=== PATIENT | female | born 1990 | race African-American/Black ===

== ENCOUNTER 2018-07-25 18:58 | Emergency (ER) | payer MEDICAID, OTHER ==
[~2018-07-25] VITALS: Ht 180.3 cm; Wt 96.0 kg
[2018-07-25] MEDS ORDERED: ONDANSETRON HCL 4MG/2ML INJ IV STA (21:08)
[2018-07-25] MEDS ORDERED: KETOROLAC 30MG/ML VIAL IV STA (21:08)
[2018-07-25] MEDS ORDERED: SODIUM CHLORIDE 0.9% 1000ML BAG (SEPSIS BOLUS) IV ONE (21:15)
[2018-07-25 21:39] LABS: CLARITY URINE CLEAR (CLEAR); COLOR URINE YELLOW (YELLOW); KETONES URINE NEGATIVE (NEGATIVE); LEUKOCYTE ESTERASE URINE TRACE (NEGATIVE); NITRITE URINE NEGATIVE (NEGATIVE); OCCULT BLOOD URINE NEGATIVE (NEGATIVE); PROTEIN URINE NEGATIVE (NEGATIVE)
[2018-07-25 21:44] LABS: CHLORIDE 105 mEq/L (98-107)
[2018-07-25] MEDS ORDERED: ONDANSETRON 4MG ODT PO ONE (21:45)
[2018-07-25 21:50] LABS: ETHANOL BLOOD < 10 mg/dL
[2018-07-25 21:54] LABS: CREATINE KINASE 94 IU/L (26-192); CREATINE KINASE MB FRACTION < 1.0 ng/mL (0.5-3.6)
[2018-07-25 21:54] LABS: *AMPHETAMINES SCREEN URINE NEGATIVE (NEGATIVE); *BARBITURATES SCREEN URINE NEGATIVE (NEGATIVE); *BENZODIAZEPINES SCREEN URINE NEGATIVE (NEGATIVE); *COCAINE SCREEN URINE NEGATIVE (NEGATIVE); METHADONE URINE SCREEN NEGATIVE (NEGATIVE); OPIATES URINE SCREEN NEGATIVE (NEGATIVE); PHENCYCLIDINE URINE SCREEN NEGATIVE (NEGATIVE)
[2018-07-25 21:58] LABS: CANNABINOID URINE SCREEN PRESUMTIVE POSITIVE (NEGATIVE)
[2018-07-25 22:50] LABS: BASOPHILS % 0.5 % (0.0-2.0); EOSINOPHILS % 0.6 % (0.0-5.0); HEMATOCRIT. 39.8 % (36.0-48.0); HEMOGLOBIN. 13.5 g/dL (12.0-16.0); LYMPHOCYTES % 24.3 % (20.0-50.0); MEAN CORPUSCULAR HEMOGLOBIN 29.3 pg (28.0-32.0); MEAN CORPUSCULAR VOLUME 86.6 fL (81.0-99.0); MONOCYTES % 7.7 % (2.0-8.0); NEUTROPHILS % 66.9 % (40.0-76.0); PLATELET 321 x1000/uL (130-400); RED BLOOD CELL COUNT 4.59 mill/uL (4.2-5.4); RED CELL DISTRIBUTION WIDTH 13.8 % (11.6-14.6)
[2018-07-25 22:54] LABS: INR 1.1; PROTHROMBIN TIME 10.9 sec (9.6-11.0)
[2018-07-25 22:55] LABS: HCG SCREEN NEGATIVE
[2018-07-26 00:30] VITALS: BP 111/72
== END 2018-07-26 01:05 | disposition home or self-care (01) ==
LOC: ER 18:58
DX: K52.9 Noninfective gastroenteritis and colitis, unspecified (principal); R11.2 Nausea with vomiting, unspecified; N39.0 Urinary tract infection, site not specified; Z98.890 Other specified postprocedural states
CPT/HCPCS: 36415; 80053; 80305; 80320; 81003; 82550; 82553; 83605; 83690; 83880; 84145; 84484; 84703; 85025; 85610; 87015; 87040; 87045; 87086; 87427; 87449; 87493; 99283; J7030; Q0162; Z7610; G0480

== ENCOUNTER 2019-04-23 07:54 | Emergency (ER) | payer OTHER ==
[~2019-04-23] VITALS: Ht 177.8 cm; Wt 91.0 kg
[2019-04-23 08:30] VITALS: BP 123/77
[2019-04-23] MEDS ORDERED: KETOROLAC 30MG/ML VIAL IM ONE (09:00)
== END 2019-04-23 10:23 | disposition home or self-care (01) ==
LOC: ER 08:03
DX: R51 Headache (principal); Z98.890 Other specified postprocedural states
CPT/HCPCS: 81025; 96372; 99283; J1885

== ENCOUNTER 2019-09-25 07:55 | Emergency (ER) | payer OTHER ==
[~2019-09-25] VITALS: Ht 175.3 cm; Wt 86.0 kg
[2019-09-25 08:03] VITALS: BP 117/70
[2019-09-25 09:01] LABS: CLARITY URINE TURBID (CLEAR); COLOR URINE DARK YELLOW (YELLOW); KETONES URINE TRACE (NEGATIVE); LEUKOCYTE ESTERASE URINE 2+ (NEGATIVE); NITRITE URINE NEGATIVE (NEGATIVE); OCCULT BLOOD URINE NEGATIVE (NEGATIVE); PROTEIN URINE TRACE (NEGATIVE); SPECIFIC GRAVITY URINE 1.029 (1.005-1.030)
[2019-09-25] MEDS ORDERED: NITROFURANTOIN 100MG M/M CAPSULE PO ONE (09:30)
[2019-09-25 10:15] LABS: CHLORIDE 107 mEq/L (98-107)
[2019-09-25 10:17] LABS: EOSINOPHILS % 1.8 % (0.0-5.0); HEMATOCRIT. 40.1 % (36.0-48.0); HEMOGLOBIN. 13.4 g/dL (12.0-16.0); LYMPHOCYTES % 30.5 % (20.0-50.0); MEAN CORPUSCULAR HEMOGLOBIN 29.7 pg (28.0-32.0); MEAN CORPUSCULAR VOLUME 88.7 fL (81.0-99.0); MEAN PLATELET VOLUME 7.3 fl (7.4-10.4); NEUTROPHILS % 58.7 % (40.0-76.0); PLATELET 312 x1000/uL (130-400); RED BLOOD CELL COUNT 4.52 mill/uL (4.2-5.4); RED CELL DISTRIBUTION WIDTH 13.4 % (11.6-14.6)
[2019-09-25 10:29] LABS: B-HCG QUANTITATIVE 108 mIU/mL (<3)
[2019-09-27 04:07] LABS: NEISSERIA GONORRHOEAE NAA Negative (Negative)
== END 2019-09-25 10:40 | disposition home or self-care (01) ==
LOC: ER 08:28
DX: O23.41 Unspecified infection of urinary tract in pregnancy, first trimester (principal); Z3A.01 Less than 8 weeks gestation of pregnancy; Z98.890 Other specified postprocedural states
CPT/HCPCS: 36415; 76801; 80053; 81003; 81025; 84702; 85025; 87491; 87591; 99284

== ENCOUNTER 2019-09-28 06:50 | Emergency (ER) | payer OTHER ==
[~2019-09-28] VITALS: Ht 177.8 cm; Wt 86.0 kg
[2019-09-28 06:54] VITALS: BP 115/69
[2019-09-28 07:35] LABS: CHLORIDE 107 mEq/L (98-107)
[2019-09-28 07:38] LABS: CLARITY URINE CLEAR (CLEAR); COLOR URINE YELLOW (YELLOW); KETONES URINE NEGATIVE (NEGATIVE); LEUKOCYTE ESTERASE URINE 1+ (NEGATIVE); NITRITE URINE NEGATIVE (NEGATIVE); OCCULT BLOOD URINE NEGATIVE (NEGATIVE); PH URINE 5.5 (4.5-8.0); PROTEIN URINE NEGATIVE (NEGATIVE); SPECIFIC GRAVITY URINE 1.024 (1.005-1.030)
[2019-09-28 07:46] LABS: B-HCG QUANTITATIVE 118 mIU/mL (<3)
== END 2019-09-28 09:34 | disposition home or self-care (01) ==
LOC: ER 06:52
DX: O20.0 Threatened abortion (principal); Z3A.00 Weeks of gestation of pregnancy not specified
CPT/HCPCS: 36415; 76801; 80053; 81003; 81025; 84702; 99284

== ENCOUNTER 2019-10-01 13:13 | Emergency (ER) | payer OTHER ==
[~2019-10-01] VITALS: Ht 177.8 cm; Wt 85.0 kg
[2019-10-01 15:19] LABS: CLARITY URINE CLOUDY (CLEAR); COLOR URINE YELLOW (YELLOW); KETONES URINE NEGATIVE (NEGATIVE); LEUKOCYTE ESTERASE URINE 1+ (NEGATIVE); NITRITE URINE NEGATIVE (NEGATIVE); OCCULT BLOOD URINE NEGATIVE (NEGATIVE); PH URINE 6.5 (4.5-8.0); PROTEIN URINE NEGATIVE (NEGATIVE)
[2019-10-01 16:43] LABS: BASOPHILS % 0.8 % (0.0-2.0); EOSINOPHILS % 0.9 % (0.0-5.0); HEMOGLOBIN. 12.7 g/dL (12.0-16.0); LYMPHOCYTES % 38.1 % (20.0-50.0); MEAN CORPUSCULAR HEMOGLOBIN 29.2 pg (28.0-32.0); MEAN CORPUSCULAR VOLUME 87.6 fL (81.0-99.0); MEAN PLATELET VOLUME 7.3 fl (7.4-10.4); MONOCYTES % 9.4 % (2.0-8.0); NEUTROPHILS % 50.8 % (40.0-76.0); PLATELET 335 x1000/uL (130-400); RED BLOOD CELL COUNT 4.33 mill/uL (4.2-5.4)
[2019-10-01 16:45] LABS: CHLORIDE 107 mEq/L (98-107)
[2019-10-01 16:56] LABS: B-HCG QUANTITATIVE 14 mIU/mL (<3)
[2019-10-01 17:46] VITALS: BP 120/70
== END 2019-10-01 17:47 | disposition home or self-care (01) ==
LOC: ER 13:13
DX: R10.32 Left lower quadrant pain (principal); G43.909 Migraine, unspecified, not intractable, without status migrainosus; Z98.890 Other specified postprocedural states
CPT/HCPCS: 36415; 76801; 80053; 81003; 81025; 84702; 85025; 86850; 86900; 99284

== ENCOUNTER 2019-12-16 18:34 | Emergency (ER) | payer OTHER ==
[~2019-12-16] VITALS: Ht 177.8 cm; Wt 95.0 kg
[2019-12-16 19:00] VITALS: BP 111/72
[2019-12-16] MEDS ORDERED: ACETAMINOPHEN 325MG TABLET PO ONE (19:00)
== END 2019-12-16 19:19 | disposition home or self-care (01) ==
LOC: ER 18:34
DX: L03.115 Cellulitis of right lower limb (principal)
CPT/HCPCS: 99283

== ENCOUNTER 2020-04-14 21:43 | Emergency (ER) | payer OTHER ==
[~2020-04-14] VITALS: Ht 175.3 cm; Wt 91.0 kg
[2020-04-14 21:52] VITALS: BP 124/92
[2020-04-14] MEDS ORDERED: KETOROLAC 30MG/ML VIAL IV STA (23:03)
[2020-04-14] MEDS ORDERED: SODIUM CHLORIDE 0.9% 1,000 ML IV ONE (23:15)
[2020-04-14 23:31] LABS: EOSINOPHILS % 1.9 % (0.0-5.0); HEMATOCRIT. 37.2 % (36.0-48.0); HEMOGLOBIN. 12.7 g/dL (12.0-16.0); LYMPHOCYTES % 41.3 % (20.0-50.0); MEAN CORPUSCULAR HEMOGLOBIN 29.9 pg (28.0-32.0); MEAN CORPUSCULAR VOLUME 87.3 fL (81.0-99.0); MEAN PLATELET VOLUME 7.2 fl (7.4-10.4); MONOCYTES % 7.9 % (2.0-8.0); NEUTROPHILS % 47.9 % (40.0-76.0); PLATELET 319 x1000/uL (130-400); RED BLOOD CELL COUNT 4.26 mill/uL (4.2-5.4); RED CELL DISTRIBUTION WIDTH 13.4 % (11.6-14.6)
[2020-04-14 23:36] LABS: CLARITY URINE CLOUDY (CLEAR); COLOR URINE YELLOW (YELLOW); KETONES URINE TRACE (NEGATIVE); LEUKOCYTE ESTERASE URINE 1+ (NEGATIVE); NITRITE URINE NEGATIVE (NEGATIVE); OCCULT BLOOD URINE NEGATIVE (NEGATIVE); PROTEIN URINE NEGATIVE (NEGATIVE); SPECIFIC GRAVITY URINE 1.027 (1.005-1.030)
[2020-04-14 23:43] LABS: CHLORIDE 107 mEq/L (98-107)
== END 2020-04-15 02:16 | disposition left against medical advice (07) ==
LOC: ER 21:43
DX: R10.30 Lower abdominal pain, unspecified (principal); Z98.890 Other specified postprocedural states
CPT/HCPCS: 36415; 76830; 76856; 80053; 81003; 81025; 85025; 93005; 96374; 99285; J1885; J7030

== ENCOUNTER 2022-05-13 22:41 | Emergency (ER) | payer MEDICAID, OTHER ==
[~2022-05-13] VITALS: Ht 177.8 cm; Wt 98.0 kg
[2022-05-14 00:13] LABS: CHLORIDE 106 mEq/L (98-107)
[2022-05-14 00:19] LABS: BASOPHILS % 0.8 % (0.0-2.0); EOSINOPHILS % 2.9 % (0.0-5.0); HEMATOCRIT. 42.6 % (36.0-48.0); HEMOGLOBIN. 14.3 g/dL (12.0-16.0); LYMPHOCYTES % 42.8 % (20.0-50.0); MEAN CORPUSCULAR HEMOGLOBIN 29.4 pg (28.0-32.0); MEAN CORPUSCULAR VOLUME 87.8 fL (81.0-99.0); MEAN PLATELET VOLUME 7.2 fl (7.4-10.4); MONOCYTES % 9.2 % (2.0-8.0); NEUTROPHILS % 44.3 % (40.0-76.0); PLATELET 363 x1000/uL (130-400); RED BLOOD CELL COUNT 4.85 mill/uL (4.2-5.4); RED CELL DISTRIBUTION WIDTH 14.1 % (11.6-14.6)
[2022-05-14 02:15] LABS: CLARITY URINE CLEAR (CLEAR); COLOR URINE YELLOW (YELLOW); KETONES URINE TRACE (NEGATIVE); LEUKOCYTE ESTERASE URINE NEGATIVE (NEGATIVE); NITRITE URINE NEGATIVE (NEGATIVE); OCCULT BLOOD URINE NEGATIVE (NEGATIVE); PROTEIN URINE NEGATIVE (NEGATIVE); SPECIFIC GRAVITY URINE 1.023 (1.005-1.030); UROBILINOGEN URINE 0.2 E.U./dL (0.2-1.0)
[2022-05-14 02:21] LABS: UCG SCREEN NEGATIVE
[2022-05-14 03:15] VITALS: BP 128/82
[2022-05-14] MEDS ORDERED: IBUPROFEN 400MG TABLET PO ONE (03:15)
== END 2022-05-14 04:44 | disposition home or self-care (01) ==
LOC: ER 22:49
DX: R10.9 Unspecified abdominal pain (principal)
CPT/HCPCS: 36415; 76830; 76856; 80053; 81003; 81025; 84702; 85025; 99284

== ENCOUNTER 2022-05-16 18:22 | Emergency (ER) | payer OTHER ==
[~2022-05-16] VITALS: Ht 180.3 cm; Wt 98.0 kg
[2022-05-16 19:07] VITALS: BP 117/78
[2022-05-16 23:10] LABS: HEMATOCRIT 41.5 % (36.0-48.0); HEMOGLOBIN 13.9 g/dL (12.0-16.0); MEAN CORPUSCULAR HEMOGLOBIN 29.1 pg (28.0-32.0); MEAN CORPUSCULAR VOLUME 86.9 fL (81.0-99.0); PLATELET 327 x1000/uL (130-400); RED BLOOD CELL COUNT 4.77 mill/uL (4.2-5.4)
[2022-05-16 23:17] LABS: CHLORIDE 108 mEq/L (98-107)
[2022-05-16 23:46] LABS: CLARITY URINE CLEAR (CLEAR); COLOR URINE YELLOW (YELLOW); KETONES URINE NEGATIVE (NEGATIVE); LEUKOCYTE ESTERASE URINE 1+ (NEGATIVE); NITRITE URINE NEGATIVE (NEGATIVE); OCCULT BLOOD URINE NEGATIVE (NEGATIVE); PROTEIN URINE NEGATIVE (NEGATIVE); SPECIFIC GRAVITY URINE 1.021 (1.005-1.030); UROBILINOGEN URINE 0.2 E.U./dL (0.2-1.0)
== END 2022-05-17 03:48 | disposition home or self-care (01) ==
LOC: ER 18:22
DX: R10.9 Unspecified abdominal pain (principal); Z98.890 Other specified postprocedural states
CPT/HCPCS: 36415; 76830; 76856; 80053; 81003; 81025; 84702; 85027; 99284

== ENCOUNTER 2022-07-14 19:04 | Emergency (ER) | payer OTHER ==
[~2022-07-14] VITALS: Ht 177.8 cm; Wt 98.9 kg
[2022-07-14 19:23] VITALS: BP 120/73
== END 2022-07-14 22:24 | disposition left against medical advice (07) ==
LOC: ER 19:04
DX: Z53.21 Procedure and treatment not carried out due to patient leaving prior to being seen by health care provider (principal)
CPT/HCPCS: 99281

== ENCOUNTER 2023-08-01 15:49 | Emergency (ER) | payer MEDICAID, OTHER ==
[~2023-08-01] VITALS: Ht 177.8 cm; Wt 105.0 kg
[2023-08-01 16:25] VITALS: BP 116/87; TEMP 98.5; O2SAT 100
[2023-08-01 16:41] LABS: CLARITY URINE CLEAR (CLEAR); COLOR URINE YELLOW (YELLOW); GLUCOSE URINE NEGATIVE (NEGATIVE); KETONES URINE NEGATIVE (NEGATIVE); LEUKOCYTE ESTERASE URINE 1+ (NEGATIVE); NITRITE URINE NEGATIVE (NEGATIVE); OCCULT BLOOD URINE NEGATIVE (NEGATIVE); PROTEIN URINE NEGATIVE (NEGATIVE); SPECIFIC GRAVITY URINE 1.031 (1.005-1.030)
[2023-08-01 16:54] LABS: BACTERIA URINE 1+; SQUAMOUS EPITHELIAL CELL URINE 3+ /lpf (RARE/1+); YEAST URINE NONE SEEN
[2023-08-01] MEDS: ACETAMINOPHEN 325MG TABLET PO STA (16:54)
[2023-08-01 17:16] LABS: EOSINOPHILS % 1.4 % (0.0-5.0); HEMATOCRIT. 41.9 % (36.0-48.0); HEMOGLOBIN. 13.7 g/dL (12.0-16.0); LYMPHOCYTES % 40.1 % (20.0-50.0); MEAN CORPUSCULAR HEMOGLOBIN 28.9 pg (28.0-32.0); MEAN CORPUSCULAR HGB CONC 32.8 g/dL (31.0-37.0); MEAN CORPUSCULAR VOLUME 88.2 fL (81.0-99.0); MEAN PLATELET VOLUME 7.5 fl (7.4-10.4); MONOCYTES % 7.1 % (2.0-8.0); NEUTROPHILS % 50.4 % (40.0-76.0); PLATELET 388 x1000/uL (130-400); RED BLOOD CELL COUNT 4.75 mill/uL (4.2-5.4); RED CELL DISTRIBUTION WIDTH 13.8 % (11.6-14.6); WHITE BLOOD COUNT 9.3 x1000/uL (4.5-11.0)
[2023-08-01 17:22] LABS: CHLORIDE 106 mEq/L (98-107); SODIUM 137 mEq/L (136-145)
[2023-08-01 17:23] LABS: CALCIUM 10.2 mg/dL (8.7-10.4); CARBON DIOXIDE 25 mEq/L (21-32)
[2023-08-01 17:27] LABS: HCG SCREEN POSITIVE
[2023-08-01 17:28] LABS: CREATININE 0.9 mg/dL (0.6-1.0); GLUCOSE 106 mg/dL (70-105); UREA NITROGEN BLOOD 13 mg/dL (9-23)
[2023-08-01 17:29] LABS: B-HCG QUANTITATIVE 51 mIU/mL (<3)
[2023-08-01 17:30] LABS: ALANINE AMINOTRANSFERASE 10 IU/L (10-49); ALBUMIN 4.8 g/dL (3.2-4.8); ASPARTATE AMINOTRANSFERASE 13 IU/L (<34); BILIRUBIN TOTAL 0.3 mg/dL (0.1-1.0)
[2023-08-01 17:31] LABS: PROTEIN TOTAL 7.7 g/dL (6.0-8.3)
[2023-08-01 17:41] LABS: BILIRUBIN DIRECT < 0.1 mg/dL (<=3.0)
[2023-08-01] MEDS ORDERED: CEPH500C2 MT (18:32)
[2023-08-01 19:02] VITALS: PULSE 83; RESP 16
== END 2023-08-01 19:03 | disposition home or self-care (01) ==
LOC: ER 15:49
DX: N39.0 Urinary tract infection, site not specified (principal); R10.30 Lower abdominal pain, unspecified; Z98.890 Other specified postprocedural states
CPT/HCPCS: 80076; 80048; 81003; 81025; 84703; 84702; 85025; 36415; 76705; 76830; 76856; 99284; Z7610 ×3

== ENCOUNTER 2023-08-12 16:13 | Emergency (ER) | payer MEDICAID ==
[~2023-08-12] VITALS: Ht 172.7 cm; Wt 81.0 kg
[~2023-08-12 16:13] MED LIST: CEPH500C2 MT
[2023-08-12 16:23] VITALS: BP 115/71; PULSE 87; RESP 18; TEMP 98.2; O2SAT 100
[2023-08-12 23:03] LABS: CLARITY URINE CLEAR (CLEAR); COLOR URINE YELLOW (YELLOW); GLUCOSE URINE NEGATIVE (NEGATIVE); KETONES URINE NEGATIVE (NEGATIVE); LEUKOCYTE ESTERASE URINE NEGATIVE (NEGATIVE); NITRITE URINE NEGATIVE (NEGATIVE); OCCULT BLOOD URINE NEGATIVE (NEGATIVE); PROTEIN URINE NEGATIVE (NEGATIVE); SPECIFIC GRAVITY URINE 1.028 (1.005-1.030); UROBILINOGEN URINE 0.2 E.U./dL (0.2-1.0)
== END 2023-08-12 22:46 | disposition left against medical advice (07) ==
LOC: ER 16:13
DX: N93.9 Abnormal uterine and vaginal bleeding, unspecified (principal); Z53.21 Procedure and treatment not carried out due to patient leaving prior to being seen by health care provider
CPT/HCPCS: 76801; 81003; 81025

== ENCOUNTER 2023-08-23 13:34 | Emergency (ER) | payer MEDICAID ==
[~2023-08-23] VITALS: Ht 175.3 cm; Wt 90.0 kg
[2023-08-23 13:45] VITALS: BP 133/80; PULSE 93; RESP 20; TEMP 98; O2SAT 100
[2023-08-23] MEDS ORDERED: METOCLOPRAMIDE HCL 10MG/2ML VIAL IV ONE (15:00)
[2023-08-23 15:57] LABS: BASOPHILS % 0.4 % (0.0-2.0); EOSINOPHILS % 0.1 % (0.0-5.0); HEMATOCRIT. 44.4 % (36.0-48.0); HEMOGLOBIN. 14.7 g/dL (12.0-16.0); LYMPHOCYTES % 12.2 % (20.0-50.0); MEAN CORPUSCULAR HEMOGLOBIN 29.2 pg (28.0-32.0); MEAN CORPUSCULAR HGB CONC 33.2 g/dL (31.0-37.0); MEAN CORPUSCULAR VOLUME 88.1 fL (81.0-99.0); MEAN PLATELET VOLUME 6.8 fl (7.4-10.4); MONOCYTES % 3.6 % (2.0-8.0); NEUTROPHILS % 83.7 % (40.0-76.0); PLATELET 409 x1000/uL (130-400); RED BLOOD CELL COUNT 5.04 mill/uL (4.2-5.4); RED CELL DISTRIBUTION WIDTH 13.9 % (11.6-14.6); WHITE BLOOD COUNT 14.8 x1000/uL (4.5-11.0)
[2023-08-23 16:05] LABS: CHLORIDE 102 mEq/L (98-107); POTASSIUM 3.8 mEq/L (3.5-5.1); SODIUM 137 mEq/L (136-145)
[2023-08-23 16:06] LABS: CARBON DIOXIDE 23 mEq/L (21-32)
[2023-08-23 16:11] LABS: CREATININE 0.6 mg/dL (0.6-1.0); GLUCOSE 106 mg/dL (70-105); UREA NITROGEN BLOOD 7 mg/dL (9-23)
[2023-08-23 16:30] LABS: BETA HYDROXYBUTYRATE 0.3 mMol/L (0.0-0.3)
[2023-08-23] MEDS: SODIUM CHLORIDE 0.9% 1,000 ML IV ONE (18:09)
[2023-08-23] MEDS: METOCLOPRAMIDE HCL 10MG/2ML VIAL IV NR (18:47)
== END 2023-08-23 19:01 | disposition home or self-care (01) ==
LOC: ER 13:34
DX: R11.2 Nausea with vomiting, unspecified (principal)
CPT/HCPCS: 80048; 82010; 84702; 85025; 86850; 86900; 86901; 36415; 76805; 76810; 96361; 96374; 99285; J2765; Z7610

== ENCOUNTER 2023-08-30 13:13 | Emergency (ER) | payer MEDICAID ==
[~2023-08-30] VITALS: Ht 172.7 cm; Wt 91.0 kg
[2023-08-30 13:16] VITALS: BP 123/72; PULSE 91; RESP 18; O2SAT 100
[2023-08-30 13:51] LABS: BASOPHILS % 0.8 % (0.0-2.0); EOSINOPHILS % 0.9 % (0.0-5.0); HEMATOCRIT. 39.1 % (36.0-48.0); LYMPHOCYTES % 26.4 % (20.0-50.0); MEAN CORPUSCULAR HEMOGLOBIN 29.2 pg (28.0-32.0); MEAN CORPUSCULAR HGB CONC 33.3 g/dL (31.0-37.0); MEAN CORPUSCULAR VOLUME 87.7 fL (81.0-99.0); MEAN PLATELET VOLUME 6.7 fl (7.4-10.4); MONOCYTES % 9.4 % (2.0-8.0); NEUTROPHILS % 62.5 % (40.0-76.0); PLATELET 411 x1000/uL (130-400); RED BLOOD CELL COUNT 4.46 mill/uL (4.2-5.4); RED CELL DISTRIBUTION WIDTH 13.7 % (11.6-14.6); WHITE BLOOD COUNT 14.5 x1000/uL (4.5-11.0)
[2023-08-30 13:57] LABS: CHLORIDE 102 mEq/L (98-107); SODIUM 134 mEq/L (136-145)
[2023-08-30 13:58] LABS: CALCIUM 9.1 mg/dL (8.7-10.4); CARBON DIOXIDE 26 mEq/L (21-32)
[2023-08-30 14:03] LABS: CREATININE 0.6 mg/dL (0.6-1.0); GLUCOSE 91 mg/dL (70-105)
[2023-08-30 14:15] VITALS: TEMP 98.3
[2023-08-30] MEDS: ACETAMINOPHEN 325MG TABLET PO ONE (14:15)
[2023-08-30 14:27] LABS: B-HCG QUANTITATIVE 117211 mIU/mL (<3); UREA NITROGEN BLOOD < 5 mg/dL (9-23)
[2023-08-30 16:13] LABS: CLARITY URINE CLOUDY (CLEAR); COLOR URINE YELLOW (YELLOW); GLUCOSE URINE NEGATIVE (NEGATIVE); KETONES URINE NEGATIVE (NEGATIVE); LEUKOCYTE ESTERASE URINE NEGATIVE (NEGATIVE); NITRITE URINE NEGATIVE (NEGATIVE); OCCULT BLOOD URINE NEGATIVE (NEGATIVE); PH URINE 6.5 (4.5-8.0); PROTEIN URINE NEGATIVE (NEGATIVE); SPECIFIC GRAVITY URINE 1.021 (1.005-1.030)
[2023-08-30 16:45] LABS: BACTERIA URINE 2+; RBC URINE 0-2 /hpf (0-2); SQUAMOUS EPITHELIAL CELL URINE 1+ /lpf (RARE/1+); WBC URINE 0-2 /hpf (0-2)
== END 2023-08-30 17:07 | disposition home or self-care (01) ==
LOC: ER 13:13
DX: O26.891 Other specified pregnancy related conditions, first trimester (principal); Z3A.01 Less than 8 weeks gestation of pregnancy; Z98.890 Other specified postprocedural states
CPT/HCPCS: 36415; 76801; 76802; 80048; 81003; 84702; 85025; 86850; 86900; 99284

== ENCOUNTER 2023-09-06 18:38 | Emergency (ER) | payer MEDICAID ==
[~2023-09-06] VITALS: Ht 167.6 cm; Wt 70.0 kg
[2023-09-06 18:46] VITALS: O2SAT 99
[2023-09-06 19:27] LABS: BASOPHILS % 0.2 % (0.0-2.0); HEMATOCRIT. 43.1 % (36.0-48.0); HEMOGLOBIN. 14.4 g/dL (12.0-16.0); LYMPHOCYTES % 9.7 % (20.0-50.0); MEAN CORPUSCULAR HEMOGLOBIN 29.3 pg (28.0-32.0); MEAN CORPUSCULAR HGB CONC 33.4 g/dL (31.0-37.0); MEAN CORPUSCULAR VOLUME 87.6 fL (81.0-99.0); MEAN PLATELET VOLUME 6.7 fl (7.4-10.4); MONOCYTES % 3.7 % (2.0-8.0); NEUTROPHILS % 86.4 % (40.0-76.0); PLATELET 417 x1000/uL (130-400); RED BLOOD CELL COUNT 4.92 mill/uL (4.2-5.4); WHITE BLOOD COUNT 15.3 x1000/uL (4.5-11.0)
[2023-09-06 19:30] LABS: CHLORIDE 102 mEq/L (98-107); SODIUM 136 mEq/L (136-145)
[2023-09-06 19:31] LABS: CALCIUM 10.2 mg/dL (8.7-10.4); CARBON DIOXIDE 22 mEq/L (21-32)
[2023-09-06 19:36] LABS: CREATININE 0.6 mg/dL (0.6-1.0); GLUCOSE 123 mg/dL (70-105); UREA NITROGEN BLOOD 7 mg/dL (9-23)
[2023-09-06 19:38] LABS: ALANINE AMINOTRANSFERASE 12 IU/L (10-49); ASPARTATE AMINOTRANSFERASE 13 IU/L (<34)
[2023-09-06 19:39] LABS: BILIRUBIN TOTAL 0.5 mg/dL (0.1-1.0); PROTEIN TOTAL 8.5 g/dL (6.0-8.3)
[2023-09-06] MEDS: SODIUM CHLORIDE 0.9% 1,000 ML IV ONE (20:31)
[2023-09-06] MEDS: ONDANSETRON HCL 4MG/2ML INJ IV ONE (20:31)
[2023-09-06] MEDS: ONDANSETRON 4MG ODT PO ONE (20:32)
[2023-09-06 20:34] LABS: B-HCG QUANTITATIVE 155229 mIU/mL (<3)
[2023-09-06 22:57] LABS: CLARITY URINE CLEAR (CLEAR); COLOR URINE DARK YELLOW (YELLOW); GLUCOSE URINE NEGATIVE (NEGATIVE); KETONES URINE 3+ (NEGATIVE); LEUKOCYTE ESTERASE URINE NEGATIVE (NEGATIVE); NITRITE URINE NEGATIVE (NEGATIVE); OCCULT BLOOD URINE NEGATIVE (NEGATIVE); PH URINE 5.5 (4.5-8.0); PROTEIN URINE 2+ (NEGATIVE); SPECIFIC GRAVITY URINE 1.037 (1.005-1.030)
[2023-09-06] MEDS ORDERED: PYRI25TA4 MT (23:05)
[2023-09-06 23:15] LABS: BACTERIA URINE 2+; RBC URINE 0-2 /hpf (0-2); SQUAMOUS EPITHELIAL CELL URINE FEW /lpf (RARE/1+); WBC URINE 0-2 /hpf (0-2)
[2023-09-06 23:16] LABS: MUCUS URINE 1+ /lpf (< = 2+)
[2023-09-06] MEDS ORDERED: CEPH500C2 MT (23:18)
[2023-09-06] MEDS: ACETAMINOPHEN 325MG TABLET PO ONE (23:48)
[2023-09-07 00:28] VITALS: BP 104/61; PULSE 83; RESP 16; TEMP 36.89184; O2SAT 100
== END 2023-09-07 00:30 | disposition home or self-care (01) ==
LOC: ER 18:38
DX: O26.891 Other specified pregnancy related conditions, first trimester (principal); Z3A.15 15 weeks gestation of pregnancy; Z98.890 Other specified postprocedural states
CPT/HCPCS: 99285; 96374; 96361; 76801; 80053; 81003; 84702; 85025; 86850; 86900; 86901; 36415; 76802; 76817; J2405; J7030; Q0162

== ENCOUNTER 2023-09-07 00:33 | Emergency (ER) | payer MEDICAID ==
[~2023-09-07 00:33] MED LIST changes: +PYRI25TA4 MT
[2023-09-07 00:35] VITALS: TEMP 98.5
[2023-09-07] MEDS: ONDANSETRON 4MG ODT PO ONE (01:39)
[2023-09-07] MEDS: ACETAMINOPHEN 325MG TABLET PO ONE (01:39)
[2023-09-07 03:52] VITALS: BP 115/67; PULSE 85; RESP 16
== END 2023-09-07 04:08 | disposition home or self-care (01) ==
LOC: ER 00:33
DX: O26.891 Other specified pregnancy related conditions, first trimester (principal); M76.01 Gluteal tendinitis, right hip; Z00.00 Encounter for general adult medical examination without abnormal findings; Z3A.09 9 weeks gestation of pregnancy
CPT/HCPCS: 99284; 76801; 76817; Q0162

== ENCOUNTER 2023-09-19 12:14 | Emergency (ER) | payer MEDICAID ==
[~2023-09-19] VITALS: Ht 177.8 cm; Wt 95.0 kg
[2023-09-19 12:26] VITALS: BP 118/75; PULSE 108; RESP 18; TEMP 98.4; O2SAT 99
[2023-09-19 13:14] LABS: BASOPHILS % 0.6 % (0.0-2.0); EOSINOPHILS % 1.4 % (0.0-5.0); HEMATOCRIT. 38.8 % (36.0-48.0); HEMOGLOBIN. 13.1 g/dL (12.0-16.0); LYMPHOCYTES % 22.2 % (20.0-50.0); MEAN CORPUSCULAR HEMOGLOBIN 29.5 pg (28.0-32.0); MEAN CORPUSCULAR HGB CONC 33.8 g/dL (31.0-37.0); MEAN CORPUSCULAR VOLUME 87.1 fL (81.0-99.0); MEAN PLATELET VOLUME 6.9 fl (7.4-10.4); MONOCYTES % 11.1 % (2.0-8.0); NEUTROPHILS % 64.7 % (40.0-76.0); PLATELET 408 x1000/uL (130-400); RED BLOOD CELL COUNT 4.46 mill/uL (4.2-5.4); RED CELL DISTRIBUTION WIDTH 14.1 % (11.6-14.6)
[2023-09-19 13:18] LABS: CHLORIDE 102 mEq/L (98-107); POTASSIUM 4.2 mEq/L (3.5-5.1); SODIUM 133 mEq/L (136-145)
[2023-09-19 13:19] LABS: CALCIUM 9.6 mg/dL (8.7-10.4); CARBON DIOXIDE 21 mEq/L (21-32)
[2023-09-19 13:23] LABS: HCG SCREEN POSITIVE
[2023-09-19 13:24] LABS: CREATININE 0.5 mg/dL (0.6-1.0); GLUCOSE 80 mg/dL (70-105)
[2023-09-19 13:26] LABS: ALANINE AMINOTRANSFERASE 11 IU/L (10-49); ALBUMIN 4.5 g/dL (3.2-4.8); ASPARTATE AMINOTRANSFERASE 12 IU/L (<34)
[2023-09-19 13:27] LABS: BILIRUBIN TOTAL 0.2 mg/dL (0.1-1.0); PROTEIN TOTAL 7.5 g/dL (6.0-8.3)
[2023-09-19 13:42] LABS: B-HCG QUANTITATIVE 119743 mIU/mL (<3); BILIRUBIN DIRECT < 0.1 mg/dL (<=3.0); UREA NITROGEN BLOOD < 5 mg/dL (9-23)
[2023-09-19] MEDS: ACETAMINOPHEN 1000MG/100ML 100 ML IV ONE (14:10)
[2023-09-19] MEDS: SODIUM CHLORIDE 0.9% 1,000 ML IV ONE (14:12)
[2023-09-19] MEDS: METOCLOPRAMIDE HCL 10MG/2ML VIAL IV ONE (14:12)
[2023-09-19 16:06] LABS: CLARITY URINE CLEAR (CLEAR); COLOR URINE YELLOW (YELLOW); GLUCOSE URINE NEGATIVE (NEGATIVE); KETONES URINE NEGATIVE (NEGATIVE); LEUKOCYTE ESTERASE URINE NEGATIVE (NEGATIVE); NITRITE URINE NEGATIVE (NEGATIVE); OCCULT BLOOD URINE NEGATIVE (NEGATIVE); PH URINE 6.5 (4.5-8.0); PROTEIN URINE NEGATIVE (NEGATIVE); SPECIFIC GRAVITY URINE 1.033 (1.005-1.030)
== END 2023-09-19 15:57 | disposition home or self-care (01) ==
LOC: ER 12:14
DX: O20.0 Threatened abortion (principal); Z3A.11 11 weeks gestation of pregnancy
CPT/HCPCS: 80076; 80048; 81003; 81025; 84703; 84702; 85025; 86850; 86900; 86901; 36415; 76802; 76801; 76817; 96365; 96375; 99285; J2765; J7030; Z7610 ×3; J0131

== ENCOUNTER 2023-10-29 12:47 | Emergency (ER) | payer MEDICAID, OTHER ==
[~2023-10-29] VITALS: Ht 172.7 cm; Wt 91.0 kg
[2023-10-29 13:04] VITALS: O2SAT 98
[2023-10-29 13:37] VITALS: BP 110/69; PULSE 95; RESP 18; TEMP 98.7; O2SAT 99
[2023-10-29 13:58] LABS: CLARITY URINE CLEAR (CLEAR); COLOR URINE YELLOW (YELLOW); GLUCOSE URINE NEGATIVE (NEGATIVE); KETONES URINE NEGATIVE (NEGATIVE); LEUKOCYTE ESTERASE URINE NEGATIVE (NEGATIVE); NITRITE URINE NEGATIVE (NEGATIVE); OCCULT BLOOD URINE NEGATIVE (NEGATIVE); PH URINE 6.5 (4.5-8.0); PROTEIN URINE NEGATIVE (NEGATIVE); SPECIFIC GRAVITY URINE 1.019 (1.005-1.030)
[2023-10-29 14:08] LABS: BASOPHILS % 1.1 % (0.0-2.0); HEMATOCRIT. 39.2 % (36.0-48.0); HEMOGLOBIN. 13.3 g/dL (12.0-16.0); LYMPHOCYTES % 25.1 % (20.0-50.0); MEAN CORPUSCULAR HEMOGLOBIN 29.6 pg (28.0-32.0); MEAN CORPUSCULAR VOLUME 87.3 fL (81.0-99.0); MEAN PLATELET VOLUME 6.7 fl (7.4-10.4); MONOCYTES % 8.5 % (2.0-8.0); NEUTROPHILS % 63.3 % (40.0-76.0); PLATELET 377 x1000/uL (130-400); RED BLOOD CELL COUNT 4.49 mill/uL (4.2-5.4); WHITE BLOOD COUNT 10.3 x1000/uL (4.5-11.0)
[2023-10-29 14:12] LABS: CHLORIDE 103 mEq/L (98-107); POTASSIUM 3.9 mEq/L (3.5-5.1); SODIUM 133 mEq/L (136-145)
[2023-10-29 14:13] LABS: CALCIUM 9.5 mg/dL (8.7-10.4); CARBON DIOXIDE 24 mEq/L (21-32)
[2023-10-29 14:18] LABS: CREATININE 0.6 mg/dL (0.6-1.0); GLUCOSE 84 mg/dL (70-105)
[2023-10-29 14:38] LABS: B-HCG QUANTITATIVE 25280 mIU/mL (<3); UREA NITROGEN BLOOD < 5 mg/dL (9-23)
[2023-10-29] MEDS: METOCLOPRAMIDE HCL 10MG TABLET PO ONE (14:40)
[2023-10-29] MEDS ORDERED: METO-293 MT (16:36)
[2023-10-29] MEDS ORDERED: ACET-2708 MT (16:36)
[2023-10-29] MEDS: ACETAMINOPHEN 325MG TABLET PO ONE (17:12)
== END 2023-10-29 17:13 | disposition home or self-care (01) ==
LOC: ER 12:47
DX: R10.32 Left lower quadrant pain (principal); Z98.890 Other specified postprocedural states
CPT/HCPCS: 99284; 76805; 80048; 81003; 81025; 84702; 85025; 86850; 86900; 86901; 36415; 76810; J8597

== ENCOUNTER 2024-07-16 05:55 | Emergency (ER) | payer OTHER ==
[~2024-07-16] VITALS: Ht 175.3 cm; Wt 97.0 kg
[~2024-07-16 05:55] MED LIST changes: +ACET-2708 MT; +METO-293 MT
[2024-07-16 06:18] VITALS: O2SAT 100
[2024-07-16] MEDS: ACETAMINOPHEN 500MG TABLET PO ONE (08:39)
[2024-07-16] MEDS ORDERED: IBUP-2029 MT (08:45)
[2024-07-16] MEDS: IBUPROFEN 600MG TABLET PO ONE (09:06)
[2024-07-16 09:09] VITALS: BP 161/95; PULSE 92; RESP 16; TEMP 36.9; O2SAT 100
== END 2024-07-16 09:12 | disposition home or self-care (01) ==
LOC: ER 06:05
DX: M25.532 Pain in left wrist (principal); Z79.899 Other long term (current) drug therapy; Z98.890 Other specified postprocedural states
CPT/HCPCS: 99284; 73110; 73120; 29125; A6449